=== PATIENT | female | born 1980 | race Caucasian/White ===

== ENCOUNTER → 2017-08-19 | Outpatient (CLI) | payer BC | LOC: COL.RAD 12:21 | DX: M67.472 Ganglion, left ankle and foot (principal) ==

== ENCOUNTER 2018-08-15 10:39 | Day surgery (SDC) | payer BC ==
[~2018-08-15] VITALS: Ht 160 cm; Wt 112.7 kg
[2018-08-15 11:16] VITALS: BP 145/97; PULSE 105; TEMP 97.5
[2018-08-15] MEDS ORDERED: PROTONIX 40MG T40 MG PO (11:25)
[2018-08-15] MEDS ORDERED: ZYRTEC 10MG10 MG PO (11:26)
[2018-08-15] MEDS ORDERED: COZAAR100 MG PO (11:27)
[2018-08-15] MEDS ORDERED: CARAFATE 1GM1 G PO (11:27)
[2018-08-15] MEDS ORDERED: SINGULAIR 110 MG/TAB PO (11:28)
[2018-08-15] MEDS ORDERED: ALBUTEROL HFA INH (2 INH (11:31)
--- NOTE | 2018-08-15 11:32 | NUR ---
TO BAY 5 AT 1050- CALL LIGHT IN REACH FRIEND HENRY AT BEDSIDE.
[2018-08-15 12:23] VITALS: BP 117/71; PULSE 93; TEMP 97.8
--- NOTE | 2018-08-15 12:23 | NUR ---
Pt to GI bay 5 via cart from ENDO. Pt drowsy, but awake. Denies pain or nausea. Pt ambulates to recliner with stand by assistance. Water given per pt request. Will continue to [facility]. Call light within reach.
[2018-08-15 12:38] VITALS: BP 113/77; PULSE 87
--- NOTE | 2018-08-15 12:38 | NUR ---
Pt sleeping. Respirations even and unlabored. Will continue to monitor. Call light within reach.
[2018-08-15 12:53] VITALS: BP 131/76; PULSE 82
--- NOTE | 2018-08-15 12:53 | NUR ---
Pt continueds to rest. Denies needs. Call light within reach.
[2018-08-15 13:06] VITALS: BP 126/87; PULSE 79
--- NOTE | 2018-08-15 13:06 | NUR ---
Discharge instructions reviewed. Pt voices understanding. IV site discontinued with all parts intact. Pt up to dress. Call light within reach.
--- NOTE | 2018-08-15 13:18 | NUR ---
Pt escorted to private car via wheel chair. Pt accompanied home by her friend Rony,
[2018-08-15 13:31] VITALS: BP 118/71; PULSE 80
== END 2018-08-15 13:19 | disposition home or self-care (01) ==
LOC: SDCO 10:39
DX: K21.0 Gastro-esophageal reflux disease with esophagitis (principal); K44.9 Diaphragmatic hernia without obstruction or gangrene; Z79.82 Long term (current) use of aspirin; Z88.1 Allergy status to other antibiotic agents; E66.01 Morbid (severe) obesity due to excess calories; J45.909 Unspecified asthma, uncomplicated; Z68.41 Body mass index [BMI] 40.0-44.9, adult; Z87.891 Personal history of nicotine dependence; Z80.0 Family history of malignant neoplasm of digestive organs
CPT/HCPCS: OP; J2250; J2405; J3010; J7030

== ENCOUNTER 2019-04-03 10:18 | Day surgery (SDC) | payer BC ==
[~2019-04-03] VITALS: Ht 160 cm; Wt 106.4 kg
[~2019-04-03 10:18] MED LIST: ALBUTEROL HFA INH (2 INH; CARAFATE 1GM1 G PO; COZAAR100 MG PO; PROTONIX 40MG T40 MG PO; SINGULAIR 110 MG/TAB PO; ZYRTEC 10MG10 MG PO
[2019-04-03] MEDS ORDERED: ESTARYLLA 35 MC1 TAB PO (10:46)
[2019-04-03 10:51] VITALS: BP 152/89; PULSE 90; TEMP 97.3
[2019-04-03 13:28] VITALS: BP 100/57; PULSE 86; TEMP 97.2
--- NOTE | 2019-04-03 13:28 | NUR ---
Pt arrived back to [facility] via cart with [employer]IR[employer] and anesthesiologist. Received report at bedside. Upon assessment, pt's VSS and WNL. Pt denies any pain but has some abdominal soreness. Otherwise, pt states that she feels "great." Pt denies nausea at this time and dressing CDI and no evident redness swelling. Abdomen soft and nontender. Call light within reach and friend, Rony, at bedside.
[2019-04-03] MEDS ORDERED: MOTRIN 600600 MG/TAB PO (13:32)
[2019-04-03] MEDS ORDERED: ULTRAM 50MG TAB50 MG PO (13:32)
[2019-04-03 13:45] VITALS: BP 98/59; PULSE 65
--- NOTE | 2019-04-03 13:45 | NUR ---
Pt sitting comfortably in bed with VSS and WNL. Pt drinking water and eating muffin without c/o nausea. Dressing maintains CDI. Call light within reach and friend at bedside. Pt states that she feels great and would like to go home soon.
[2019-04-03 14:00] VITALS: BP 123/86; PULSE 77
--- NOTE | 2019-04-03 14:00 | NUR ---
Reviewed discharge information with patient and friend including educational packet and signs/symptoms to watch for and call physician. Pt agrees with plan and expresses understanding of the plan. Pt finished muffin and water with no c/o nausea, and pt is awake, alert, and oriented. VSS and WNL. Pt had no further concerns/questions at this time.
[2019-04-03 14:15] VITALS: BP 112/67; PULSE 78
--- NOTE | 2019-04-03 14:15 | NUR ---
Pt ready to go home, and she meets criteria for discharge. VSS and WNL. Pt denies pain or nausea. Reviewed medication information and provided patient with new med scripts. Pt was discharged via wheelchair to private car with RN.
== END 2019-04-03 14:25 | disposition home or self-care (01) ==
LOC: SDCO 10:18
DX: N80.8 Other endometriosis (principal); Z87.891 Personal history of nicotine dependence; Z79.899 Other long term (current) drug therapy; Z88.1 Allergy status to other antibiotic agents; I10 Essential (primary) hypertension; K21.9 Gastro-esophageal reflux disease without esophagitis; K44.9 Diaphragmatic hernia without obstruction or gangrene; F32.9 Major depressive disorder, single episode, unspecified
CPT/HCPCS: J0690; J2704; J3010; J7120

== ENCOUNTER → 2019-09-01 | Outpatient (CLI) | payer SELFPAY ==
[~2019-09-01] MED LIST changes: +ESTARYLLA 35 MC1 TAB PO; +MOTRIN 600600 MG/TAB PO; +ULTRAM 50MG TAB50 MG PO
== END ==
LOC: ZCOL.LAB 16:43
DX: R05 Cough (principal); R53.83 Other fatigue; Z20.828 Contact with and (suspected) exposure to other viral communicable diseases

== ENCOUNTER 2021-08-02 09:45 | Emergency (ER) | payer SELFPAY ==
[~2021-08-02] VITALS: Ht 160 cm; Wt 110.0 kg
[2021-08-02 09:57] VITALS: TEMP 97.1
[2021-08-02 10:39] LABS: COLLECTION METHOD CLEAN CATCH
[2021-08-02 10:48] LABS: MUCOUS Present (NOT PRESENT); PH 5 (5-8); SQUAMOUS EPITHELIAL 0-2 /hpf (0-10); URINE APPEARANCE Cloudy (CLEAR/HAZY); URINE BACTERIA None Seen /hpf (NONE SEEN); URINE BILIRUBIN Negative (NEGATIVE); URINE BLOOD 3+ (NEGATIVE); URINE COLOR Yellow (YELLOW); URINE GLUCOSE Negative (NEGATIVE); URINE KETONE Negative (NEGATIVE); URINE LEUKOCYTE ESTERASE Negative (NEGATIVE); URINE NITRATE Negative (NEGATIVE); URINE PROTEIN(semi-quant) Negative (NEGATIVE); URINE UROBILINOGEN Negative (NEGATIVE)
[2021-08-02 10:48] LABS: BASO % 0.2 % (0.0-2.0); EOS # 0.1 K/mm3 (0.0-0.7); GRAN # 10.3 K/mm3 (1.4-6.5); GRAN % 77.1 % (42.2-75.2); HEMATOCRIT 38.9 % (37.0-47.0); HEMOGLOBIN 12.9 g/dl (12.5-16.0); LYMPH # 2.3 K/mm3 (1.2-3.4); LYMPH % 16.9 % (20.0-51.0); MEAN CELL VOLUME 92 fl (80.0-100.0); MEAN CORPUSCULAR HEMOGLOBIN 31 pg (27-31); MEAN CORPUSCULAR HGB CONC 33 g/dl (33.0-37.0); MEAN PLATELET VOLUME 8.6 fl (7.4-10.4); MONO # 0.6 K/mm3 (0.1-0.6); MONO % 4.4 % (1.7-9.3); PLATELET COUNT 246 K/mm3 (130-400); RED BLOOD COUNT 4.21 M/mm3 (4.10-5.30); REDCELL DISTRIBUTION WIDTH-CV 13.9 % (11.5-14.5)
[2021-08-02 11:06] LABS: ALBUMIN 3.5 gm/dL (3.5-5.0); BILIRUBIN,TOTAL 0.8 mg/dL (0.2-1.2); CALCIUM 8.9 mg/dL (8.4-10.2); CREATININE, serum 0.88 mg/dL (0.57-1.11); POTASSIUM 3.9 mmol/L (3.5-4.5); TOTAL PROTEIN 6.7 gm/dL (6.2-8.1)
[2021-08-02 12:18] VITALS: BP 144/94; PULSE 92
== END 2021-08-02 12:20 | disposition home or self-care (01) ==
LOC: COL.ER 09:45
PROVIDERS: Physician Assistant
DX: J30.2 Other seasonal allergic rhinitis (principal); F41.9 Anxiety disorder, unspecified
CPT/HCPCS: J1200; J7030

== ENCOUNTER → 2023-01-24 | Outpatient (CLI) | payer OTHER | LOC: COL.RAD 12:18 | DX: R22.1 Localized swelling, mass and lump, neck (principal); R22.0 Localized swelling, mass and lump, head ==